=== PATIENT | male | born 1965 | race African-American/Black ===

== ENCOUNTER 2017-03-10 20:36 | Emergency (ER) | payer OTHER ==
[2017-03-10] MEDS ORDERED: INDOMETHACIN 25 MG CAPSULE PO STA (20:47)
[2017-03-10] MEDS ORDERED: INDOMETHACIN 25 MG CAPSULE PO ONE (21:03)
== END 2017-03-10 21:07 | disposition home or self-care (01) ==
DX: M10.072 Idiopathic gout, left ankle and foot (principal); Z76.0 Encounter for issue of repeat prescription
CPT/HCPCS: 99283; A9270

== ENCOUNTER 2020-03-01 18:20 | Outpatient (CLI) | payer OTHER | END 2020-03-01 18:21 | disposition home or self-care (01) | LOC: COV 18:20 | PROVIDERS: ATTEND Family Medicine | DX: R06.02 Shortness of breath (principal); R53.83 Other fatigue | CPT/HCPCS: 81599 ==

== ENCOUNTER 2020-03-02 18:22 | Emergency (ER) | payer OTHER ==
[2020-03-02] MEDS ORDERED: ASPIRIN CHEW 81 MG TABLET PO STA (18:33)
--- NOTE | 2020-03-02 18:55 | ED Physician Documentation ---
PD HPI CHEST PAIN - Stated complaint Stated Complaint: CHEST PRESSURE - Chief complaint Chief Complaint: Cardiac - History obtained from History obtained from: Patient (54-year-old gentleman with history of borderline hypertension presents with almost 2 weeks now shortness of breath, he has orthopnea. It is worse when he exerts himself but is still able to function because of it. Denies cough. No fevers but he feels some sweats. No chest pain. He had a coronavirus testing yesterday which was negative. No pedal edema or history of heart problems. No recent travel.) Review of Systems Ten Systems: 10 systems reviewed and negative Constitutional: reports: Reviewed and negative Ears: reports: Reviewed and negative Nose: reports: Rhinorrhea / runny nose, Congestion. denies: Sinus pressure / pain Cardiac: reports: Reviewed and negative PD PAST MEDICAL HISTORY - Past Medical History Cardiovascular: High cholesterol Musculoskeletal: Gout - Past Surgical History Past Surgical History: Yes - Present Medications Home Medications: Ambulatory Orders Medication Instructions Recorded Confirmed Indomethacin 25 - 50 mg PO Q8HR PRN #20 capsule 10/14/15 traMADol [Ultram] 50 - 100 mg PO Q6H PRN #20 tablet 10/14/15 Indomethacin 25 mg PO Q8H PRN #20 capsule 03/10/17 Amlodipine Besylate [Norvasc] 10 mg PO DAILY #30 tablet 03/02/20 - Allergies Allergies/Adverse Reactions: Allergies Allergy/AdvReac Type Severity Reaction Status Date / Time acetaminophen [From Vicodin] Allergy Intermediate b/p high Verified 03/02/20 18:29 hydrocodone bitartrate * Allergy Intermediate b/p high Verified 03/02/20 18:29 [From Vicodin] - Social History Does the pt smoke?: No Smoking Status: Never smoker Does the pt drink ETOH?: No Does the pt have substance abuse?: No - Immunizations Immunizations are current?: Yes PD ED PE NORMAL - Vitals Vital signs reviewed: Yes - General General: Alert and oriented X 3, Other (Significant hypertension, he is anxious) - HEENT HEENT: PERRL, EOMI - Neck Neck: Supple, no meningeal sign, No bony TTP - Cardiac Cardiac: RRR, No murmur - Respiratory Respiratory: No respiratory distress, Clear bilaterally - Abdomen Abdomen: Soft, Non tender - Back Back: No CVA TTP, No spinal TTP - Derm Derm: Normal color, Warm and dry - Extremities Extremities: No calf tenderness / cord (Maybe at most trace pitting pedal edema) - Neuro Neuro: Alert and oriented X 3, Normal speech Results - Vitals Vitals: Vital Signs - 24 hr 03/02/20 03/02/20 03/02/20 18:29 19:00 19:52 Temperature 36.5 C Heart Rate 86 92 85 Respiratory 16 16 14 Rate Blood Pressure 201/123 H 191/119 H 183/92 H O2 Saturation 97 97 Oxygen O2 Source Room air - EKG (time done) 1829 Rate: Rate (enter#) (78) Rhythm: NSR [place]: Normal Intervals: Normal [place] QRS: LVH Ischemia: Non specific changes. No: ST elevation c/w ischemia, ST depression Computer interpretation: Agree with computer - Labs Labs: Laboratory Tests 03/02/20 03/02/20 03/02/20 19:00 19:00 19:00 WBC 6.5 RBC 5.11 Hgb 16.4 Hct 46.5 MCV 91.0 MCH 32.1 H MCHC 35.3 RDW 11.9 L Plt Count 200 MPV 11.6 H Neut # (Auto) 4.3 Lymph # (Auto) 1.8 [place] # (Auto) 0.4 Eos # (Auto) 0.0 Baso # (Auto) 0.0 Absolute Nucleated RBC 0.00 Nucleated RBC % 0.0 PT 13.8 H INR 1.2 D-Dimer Sodium 134 L Potassium 3.7 Chloride 103 Carbon Dioxide 24 Anion Gap 7.0 BUN 12 Creatinine 1.2 Estimated GFR (MDRD) 77 L Glucose 178 H Calcium 9.5 Total Bilirubin 1.2 H AST 41 ALT 50 Alkaline Phosphatase 58 Troponin I High Sens B-Natriuretic Peptide Total Protein 8.4 H Albumin 4.4 Globulin 4.1 Albumin/Globulin Ratio 1.1 Lipase 25 03/02/20 03/02/20 03/02/20 19:00 19:00 19:00 WBC RBC Hgb Hct MCV MCH MCHC RDW Plt Count MPV Neut # (Auto) Lymph # (Auto) [place] # (Auto) Eos # (Auto) Baso # (Auto) Absolute Nucleated RBC Nucleated RBC % PT INR D-Dimer 226.8 Sodium Potassium Chloride Carbon Dioxide Anion Gap BUN Creatinine Estimated GFR (MDRD) Glucose Calcium Total Bilirubin AST ALT Alkaline Phosphatase Troponin I High Sens 3.2 B-Natriuretic Peptide 8 Total Protein Albumin Globulin Albumin/Globulin Ratio Lipase PD MEDICAL DECISION MAKING - ED course ED course: 54-year-old gentleman presents with exertional dyspnea and orthopnea. There is definitely a URI component to it with some nasal congestion, he had a negative coronavirus test yesterday, and he really wants to go back to work so a second 1 was done so he could have 2 neg tests on the chart. Heart failure was a significant concern based on history but there is no clinical evidence of this, nor nor is there any lab or x-ray evidence of this. His blood pressure remained fairly high and he was administered 10 mg of Norvasc here. He was ambulatory in the department on a pulse oximeter without significant tachycardia or hypoxemia. Departure - Departure Disposition: 01 Home, Self Care Clinical Impression: Hypertension, essential Dyspnea Qualifiers: Dyspnea type: dyspnea on exertion Qualified Code(s): R06.00 - Dyspnea, unspecified Condition: Good Record reviewed to determine appropriate education?: Yes Instructions: ED Dyspnea Shortness of Breath Prescriptions: Amlodipine Besylate [Norvasc] 10 mg PO DAILY #30 tablet Comments: Today we checked you for signs of heart failure on the x-ray and labs, this was normal. We also checked for signs of blood clots or heart attack, also normal. Follow-up with your doctor for consideration of echocardiogram. Mucinex as needed per package instructions [id number] for the nasal congestion. A second coronavirus test is pending, the first 1 was negative. Return if worse.
[2020-03-02 19:13] LABS: BASOPHILS % (AUTO) 0.3 %; EOSINOPHILS % (AUTO) 0.5 %; HGB - HEMOGLOBIN 16.4 g/dL (14.0-18.0); LYMPHOCYTES # (AUTO) 1.8 10^3/uL (1.5-3.5); LYMPHOCYTES % (AUTO) 27.3 %; MEAN CORPUSCULAR HEMOGLOBIN 32.1 pg (27.0-31.0); MEAN CORPUSCULAR HGB CONC 35.3 g/dL (32.0-36.0); MEAN PLATELET VOLUME 11.6 fL (7.4-11.4); MONOCYTES # (AUTO) 0.4 10^3/uL (0.0-1.0); MONOCYTES % (AUTO) 5.4 %; NEUTROPHILS # (AUTO) 4.3 10^3/uL (1.5-6.6); NEUTROPHILS % (AUTO) 66.3 %; PLT - PLATELET COUNT 200 10^3/uL (130-450); RED BLOOD COUNT 5.11 10^6/uL (4.70-6.10); RED CELL DISTRIBUTION WIDTH 11.9 % (12.0-15.0); WHITE BLOOD COUNT 6.5 x10^3/uL (4.8-10.8)
[2020-03-02 19:20] LABS: INR 1.2 (0.8-1.2); PT - PROTHROMBIN TIME 13.8 secs (9.9-12.6)
[2020-03-02 19:25] LABS: ALBUMIN 4.4 g/dL (3.2-5.5); ALBUMIN/GLOBULIN RATIO 1.1 (1.0-2.2); BILIRUBIN,TOTAL 1.2 mg/dL (0.2-1.0); CALCIUM 9.5 mg/dL (8.5-10.3); CREATININE 1.2 mg/dL (0.6-1.2); TOTAL PROTEIN 8.4 g/dL (6.7-8.2)
--- NOTE | 2020-03-02 19:47 | XRAY Report ---
Reason: chest pain Procedure Date: 03/02/2020 Accession Number: [id number] / [id number] Procedure: XR - Chest 1 View X-Ray CPT Code: 15078 Final Report FULL RESULT: EXAM: CHEST RADIOGRAPHY EXAM DATE: 03/02/2020 07:25 PM. CLINICAL HISTORY: Chest pain. COMPARISON: None. TECHNIQUE: 1 view. FINDINGS: Lungs/Pleura: No focal opacities evident. No pleural effusion. No pneumothorax. Mediastinum: Within exam limitations, the cardiomediastinal contour is normal. Other: None. IMPRESSION: No acute cardiopulmonary findings radiographically. [facility]
[2020-03-02] MEDS ORDERED: amLODIPine 5 MG TABLET PO STA (19:53)
[2020-03-02 20:41] VITALS: BP 160/84
== END 2020-03-02 20:55 | disposition home or self-care (01) ==
LOC: ED 18:22
DX: I10 Essential (primary) hypertension (principal); R06.09 Other forms of dyspnea; R09.81 Nasal congestion; Z20.828 Contact with and (suspected) exposure to other viral communicable diseases
CPT/HCPCS: 36415; 71045; 80053; 83690; 83880; 84484; 85025; 85379; 85610; 87635; 93005; 99283; 99284; A9270; 81599